=== PATIENT | male | born 1970 | race Caucasian/White ===

== ENCOUNTER 2022-10-31 07:06 | Outpatient (CLI) | payer BC, SELFPAY ==
--- NOTE | 2022-10-31 | MR_ITS ---
WS: [id number] MRI LUMBAR SPINE NONCONTRAST HISTORY: LUMBAR RADICULOPATHY COMPARISON: None available. TECHNIQUE: Sagittal and axial multisequence imaging is submitted. Straightening of the normal cervical lordosis. Curvature cervical thoracic spines. Osteophytes encroa ch upon the cervical cord at C4-5. Normal lumbar alignment with no compression fractures or marrow edema. Disc spaces and vertebral body heights are well-preserved. Conus terminates normally at L1. L1-L2: Mild annular disc bulge with mild effacement of CSF. No os high-grade stenosis. L2-L3: Normal. L3-L4: Mild annular disc bulge with mild encroachment upon the subarticular recesses. No high-grade s tenosis. L4-L5: Mild annular disc bulging with facet and ligamentum flavum hypertrophy. Bilateral foraminal di sc protrusions and annular fissures. Mild central, bilateral subarticular recess and moderate foramin al stenosis. There is encroachment and contact on the L4 and L5 nerve roots. L5-S1: Mild annular disc bulge with a central disc protrusion. There is very slight disc contact on t he RIGHT S1 nerve root mild to moderate bilateral foraminal stenosis. Paravertebral soft tissues are negative. MR/MR lumbar spine wo con* [id number] IMPRESSION: 1. No high-grade central stenosis. 2. Mild central, bilateral subarticular recess and foraminal stenosis L4-5. Di sc and osteophyte encroachment upon the L4 and L5 nerve roots. Small bilateral foraminal disc protrusions at L4-5. 3. Mild disc contact on the RIGHT S1 nerve root. 4. Mild to moderate bilateral foraminal stenosis at L5-S1. 5. Mild subarticular recess encroachment at L3-4.
== END 2022-10-31 07:07 | disposition home or self-care (01) ==
PROVIDERS: PCP Internal Medicine; Visit Provider Orthopaedic Surgery
DX: M48.061 Spinal stenosis, lumbar region without neurogenic claudication (principal); M51.26 Other intervertebral disc displacement, lumbar region; M25.78 Osteophyte, vertebrae
CPT/HCPCS: 72148

== ENCOUNTER → 2023-02-07 11:09 | Outpatient (BNVA) | payer BC, SELFPAY | PROVIDERS: PCP Internal Medicine; Referring Provider Internal Medicine; Visit Provider Orthopaedic Surgery | DX: M48.062 Spinal stenosis, lumbar region with neurogenic claudication (principal); M47.816 Spondylosis without myelopathy or radiculopathy, lumbar region | CPT/HCPCS: 72100 ==

== ENCOUNTER → 2023-05-01 08:23 | Outpatient (BNVA) | payer BC, SELFPAY | PROVIDERS: PCP Internal Medicine; Visit Provider Internal Medicine | DX: Z00.00 Encounter for general adult medical examination without abnormal findings (principal); R53.83 Other fatigue | CPT/HCPCS: 80053; 80061; 83036; 84403; 84443; 85025; G0103 ==

== ENCOUNTER → 2025-04-22 08:30 | Outpatient (BNVA) | payer BC, SELFPAY | PROVIDERS: Visit Provider Family Medicine | DX: Z00.00 Encounter for general adult medical examination without abnormal findings (principal) | CPT/HCPCS: 80053; 80061 ==